=== PATIENT | female | born 1955 | race African-American/Black ===

== ENCOUNTER 2018-04-19 14:50 | Outpatient (CLI) | payer MEDICARE ==
--- NOTE | 2018-04-19 16:21 | MRI ---
MRI OF THE LEFT SHOULDER: Date: 04-19-18 Provided Clinical History: Left shoulder pain. FINDINGS: Comparison is made with a study dated 11-12-16. Evaluation is limited by patient motion. The components of the rotator cuff demonstrate no evidence for full thickness tear. There is increase d signal intensity on fluid sensitive sequences involving the under surface of the posterior distal s upraspinatus tendon that could reflect low grade partial thickness undersurface tearing. Signal alter ation involving the cranial fibers of the subscapularis near the lesser tuberosity insertion could al so reflect partial thickness undersurface tearing. There is thickening and increased signal intensity on fluid sensitive sequences involving the intraarticular segment of the long head biceps tendon. Sl ightly irregular appearance to the long head biceps tendon within the bicipital groove is also seen. There is a small glenohumeral joint effusion. The glenoid labrum and glenohumeral articular cartilage appear normal. There is no significant subacromial/subdeltoid bursal fluid. Acromioclavicular joint osteoarthrosis is noted with mild mass effect upon the subjacent supraspinatus. Rotator cuff muscular volume appears preserved. There is a small focus of oval diminished signal intensity involving the region of the infraspinatus tendon near the insertion likely reflecting sequellae of prior calcific tendinitis. No surrounding ed ematous type change is seen. IMPRESSION: 1. At least tendinosis and probably partial thickness interstitial tearing involving the intraarticul ar and proximal bicipital segments of the long head biceps tendon. 2. Suspected under surface tearing involving the subscapularis and supraspinatus tendons as described above. 3. Small glenohumeral joint effusion. POS: [facility]
== END 2018-04-19 14:51 | disposition home or self-care (01) ==
LOC: TBSIIMAG 14:50
PROVIDERS: ATTEND Orthopaedic Surgery
DX: M75.102 Unspecified rotator cuff tear or rupture of left shoulder, not specified as traumatic (principal); M25.412 Effusion, left shoulder; M75.92 Shoulder lesion, unspecified, left shoulder

== ENCOUNTER 2018-05-11 08:52 | Outpatient (CLI) | payer MEDICARE ==
[2018-05-11 10:31] LABS: #Eosinphils 0.2 thou/uL (0.0-0.7); #Lymphocytes 2.5 thou/uL (1.20-3.40); #Monocytes 0.5 thou/uL (0.11-0.59); #Neutrophils 4.2 thou/uL (1.40-6.50); %Basophils 0.7 % (0.0-1.0); %Eosinophils 2.1 % (0.0-10.0); %Lymphocytes 34.5 % (21.0-51.0); %Monocytes 6.2 % (0.0-10.0); %Neutrophils 56.6 % (42.0-75.0); Hemoglobin 13.9 g/dL (12.0-16.0); Mean Corpuscular HGB CONC 32.8 g/dL (32.0-36.0); Mean Corpuscular Hemoglobin 29.8 pg (27.0-31.0); Mean Corpuscular Volume 90.9 fL (78.0-98.0); Mean Platelet Volume 6.8 fL (7.4-10.4); Platelet Count 288 thou/uL (130-400); RBC Distribution Width 12.2 % (11.5-14.5); Red Blood Cell (RBC) Count 4.65 mill/uL (4.20-5.40); White Blood Cell (WBC) Count 7.4 thou/uL (4.8-10.8)
[2018-05-11 10:48] LABS: Anion Gap 12 mmol/L (10-20); BUN (Urea Nitrogen) 15 mg/dL (9.8-20.1); Calc. Creatinine Clearance 0 mL/min (70-130); Calcium 9.4 mg/dL (7.8-10.44); Carbon Dioxide 29 mmol/L (22-29); Chloride 102 mmol/L (98-107); Estimated GFR-MDRD Greater than 90; Glucose 107 mg/dL (70-105); Sodium 139 mmol/L (136-145)
== END 2018-05-11 08:53 | disposition home or self-care (01) ==
LOC: LABBT 08:52
PROVIDERS: ATTEND Orthopaedic Surgery
DX: Z01.812 Encounter for preprocedural laboratory examination (principal); S46.212A Strain of muscle, fascia and tendon of other parts of biceps, left arm, initial encounter; M75.102 Unspecified rotator cuff tear or rupture of left shoulder, not specified as traumatic
CPT/HCPCS: 80048; 85025

== ENCOUNTER 2018-05-18 06:04 | Day surgery (SDC) | payer MEDICARE ==
[2018-05-11 09:02] VITALS: BMI 48.5
[2018-05-18] MEDS ORDERED: Midazolam HCl 2 mg/2 ml Vial ONE (06:12)
[2018-05-18] MEDS ORDERED: Fentanyl 100 MCG/2 ML VIAL ONE (06:12)
[2018-05-18] MEDS ORDERED: Lidocaine 1% (PF) 30 ML VIAL ONE (06:29)
[2018-05-18] MEDS ORDERED: Clindamycin/D5W 900 mg/50 ml Premix Bag ONE (06:53)
[2018-05-18] MEDS ORDERED: Ketorolac Tromethamine 30 MG/ML VIAL IVP PRN (07:27)
[2018-05-18] MEDS ORDERED: Zolpidem Tartrate 5 MG TAB PO PRN (07:27)
[2018-05-18] MEDS ORDERED: Promethazine HCl 25 MG/ML VIAL IM PRN (07:27)
[2018-05-18] MEDS ORDERED: traMADol HCl 50 MG TAB PO PRN ×2 (07:27)
[2018-05-18] MEDS ORDERED: HYDROcodone/Acetaminophen 5/325 mg Tablet PO PRN ×2 (07:27)
[2018-05-18] MEDS ORDERED: Ondansetron PF 4 MG/2 ML Vial IVP PRN (07:27)
[2018-05-18] MEDS ORDERED: Ropivacaine 0.2% 550 ML 550 ML NERVE BLCK SCH (07:27)
[2018-05-18] MEDS ORDERED: Fentanyl 100 MCG/2 ML VIAL IV PRN (07:28)
[2018-05-18] MEDS ORDERED: hydrALAZINE 20 MG/ML VIAL ONE (09:01)
[2018-05-18] MEDS ORDERED: Albuterol Sulfate 1.25 MG/3 ML NEB ONE (09:08)
[2018-05-18] MEDS ORDERED: Albuterol Sulfate 2.5 mg/3 ml Neb ONE (09:09)
--- NOTE | 2018-05-18 10:48 | OP ---
DATE OF PROCEDURE: 05/18/2018 TITLE OF PROCEDURE: Left shoulder arthroscopic decompression, arthroscopic biceps tenotomy and arthr oscopic rotator cuff repair. SURGEON: Naif Castillo M.D. ANESTHESIA: General. BLOOD LOSS: Minimal. SPECIMEN: None. DRAINS: None. COMPLICATIONS: None. CORE DRILLER: No personnel security assistant was used. NARRATIVE REPORT: The patient was taken to the operating room where general anesthesia was induced. The patient was placed in the right lateral decubitus position. Left arm was placed in 15 pounds of traction, prepped and draped in sterile fashion. Scope was placed in the glenohumeral joint. There was no significant arthritis in the glenohumeral joint. There was a small full-thickness rotator cu ff tear. Biceps tendon was in very poor condition with some splitting and synovitis. Due to her obe sity, I elected to perform a biceps tenotomy since I have a large incision distally and arthroscopic surgery for tenodesis would not be possible due to her size. The tendon was transected from the supe rior glenoid tubercle. I debrided the labrum. The scope was placed in the subacromial joint. Subac romial bursectomy was performed. CA ligament was taken down. Hemostasis was obtained. Anterior and inferior acromioplasty was performed. I freshened up the greater tuberosity. I placed a single cor kscrew suture anchor through the defect. Sutures were passed through the rotator cuff and tied with a good watertight repair. Shoulder was drained. Portals closed with 3-0 nylon. Sterile dressings a pplied.
== END 2018-05-18 13:55 | disposition home or self-care (01) ==
LOC: SDC 06:04
PROVIDERS: ATTEND Orthopaedic Surgery
PROC: 0LM24ZZ Reattachment of Left Shoulder Tendon, Percutaneous Endoscopic Approach (ICD-10-PCS; principal; 2018-05-18)
PROC: 0RHK44Z Insertion of Internal Fixation Device into Left Shoulder Joint, Percutaneous Endoscopic Approach (ICD-10-PCS; 2018-05-18)
PROC: 0RNK4ZZ Release Left Shoulder Joint, Percutaneous Endoscopic Approach (ICD-10-PCS; 2018-05-18)
DX: M75.122 Complete rotator cuff tear or rupture of left shoulder, not specified as traumatic (principal); S46.212A Strain of muscle, fascia and tendon of other parts of biceps, left arm, initial encounter; M75.22 Bicipital tendinitis, left shoulder; E66.9 Obesity, unspecified; Z68.42 Body mass index [BMI] 45.0-49.9, adult; Z79.1 Long term (current) use of non-steroidal anti-inflammatories (NSAID); Z79.4 Long term (current) use of insulin; Z79.899 Other long term (current) drug therapy; Z88.0 Allergy status to penicillin; Z88.2 Allergy status to sulfonamides; Z88.8 Allergy status to other drugs, medicaments and biological substances; Z91.040 Latex allergy status
CPT/HCPCS: 29826; 29827; 82962; 94660; 96374; 97139; A4306; G8984; G8985; G8986; 36416; 96376; J0360; J2001; J2250; J2795; J3010; J3490; J7611

== ENCOUNTER 2018-05-18 14:27 | Emergency (ER) | payer MEDICARE | END 2018-05-18 17:10 | disposition home or self-care (01) | LOC: ERS 14:27 | DX: T85.898A Other specified complication of other internal prosthetic devices, implants and grafts, initial encounter (principal); I10 Essential (primary) hypertension; E11.9 Type 2 diabetes mellitus without complications; E66.9 Obesity, unspecified; E78.5 Hyperlipidemia, unspecified; F41.9 Anxiety disorder, unspecified; F32.9 Major depressive disorder, single episode, unspecified; K21.9 Gastro-esophageal reflux disease without esophagitis; Z79.4 Long term (current) use of insulin; Z79.82 Long term (current) use of aspirin; Z79.899 Other long term (current) drug therapy | CPT/HCPCS: 99284 ==

== ENCOUNTER 2018-08-07 12:22 | Outpatient (CLI) | payer MEDICARE | END 2018-08-07 12:23 | disposition home or self-care (01) | LOC: BICMAMMO 12:22 | PROVIDERS: ATTEND Family Medicine | DX: Z12.31 Encounter for screening mammogram for malignant neoplasm of breast (principal) | CPT/HCPCS: 77063; 77067 ==

== ENCOUNTER 2018-09-18 17:41 | Emergency (ER) | payer MEDICARE ==
[2018-09-18] MEDS ORDERED: Lidocaine 1% PF 5 ML VIAL ONE (19:59)
[2018-09-18] MEDS ORDERED: Morphine 4 MG/ML VIAL ONE (19:59)
[2018-09-18] MEDS ORDERED: cefTRIAXone\\ROCEPHIN 1 GM VIAL ONE (19:59)
--- NOTE | 2018-09-18 21:13 | ULT ---
LEFT LOWER EXTREMITY VENOUS DUPLEX STUDY: 09/18/18 Deep veins of the left lower extremity evaluated with color doppler, spectral analysis and compressio n. INDICATIONS: Left lower extremity pain and edema. Deep veins of the left lower extremity show normal blood flow and compression. No evidence of DVT. Pr ominent lymph nodes are seen in the left inguinal region. IMPRESSION: 1. No evidence of left lower extremity DVT. 2. Prominent left inguinal lymph nodes noted. POS: [facility]
== END 2018-09-18 22:17 | disposition home or self-care (01) ==
LOC: ERS 17:41
DX: L03.116 Cellulitis of left lower limb (principal); E11.9 Type 2 diabetes mellitus without complications; K21.9 Gastro-esophageal reflux disease without esophagitis; E78.5 Hyperlipidemia, unspecified; I10 Essential (primary) hypertension; M10.9 Gout, unspecified; F41.9 Anxiety disorder, unspecified; F32.9 Major depressive disorder, single episode, unspecified; F17.210 Nicotine dependence, cigarettes, uncomplicated; M19.90 Unspecified osteoarthritis, unspecified site
CPT/HCPCS: 85379; 96372; J0696; J2001; J2270

== ENCOUNTER 2018-12-03 13:35 | Outpatient (CLI) | payer MEDICARE ==
[2018-12-03] MEDS ORDERED: Sodium Chloride 0.9% 15 ML NEB ONE (18:00)
[2018-12-03] MEDS ORDERED: Lidocaine 2% PF 100 mg/5 ml Syringe ONE (18:00)
--- NOTE | 2018-12-04 00:01 | HP ---
HISTORY OF PRESENT ILLNESS: Ms. Lucila Monroy is a very pleasant 62-year-old, who presents to the [facility] for evaluation of an ulceration of the left lower leg. The patient states that she scraped her leg on a curb in August of this year. She states that initially she utilized mupirocin for treatment of the wound, but because of burning, began utilizing Vaseline. She states that plain films of the left ankle were obtained by Dr. Sky, and the patient was eventually seen by Dr. Valdivia because the wound remained unhealed. The patient was referred to the Wound Center by Dr. Valdivia on 11/22/2018. The patient states that she has been cleansing the wound with sterile water and gauze. She has been dressing the wound with Hydrofera Blue followed by a Band-Aid. The patient has also been taking Keflex as per Dr. Valdivia. PAST MEDICAL HISTORY: 1. Gastroesophageal reflux disease. 2. Diabetes mellitus. 3. Hypertension. 4. Chronic back pain. 5. Spinal stenosis. 6. Congestive heart failure, diastolic. PAST SURGICAL HISTORY: 1. Exploratory laparotomy for ruptured right ovarian cyst. 2. Incision and drainage of infected abdominal wound. 3. Appendectomy. 4. Cholecystectomy. 5. Herniorrhaphy. 6. Tonsillectomy. 7. Arthroscopic surgery of left shoulder. 8. Back surgery x2. MEDICATIONS: 1. Keflex. 2. Levemir. 3. Glipizide. 4. Furosemide. 5. Pravachol. 6. Lisinopril. 7. Melatonin. 8. Potassium. 9. Cyclobenzaprine. 10. Effexor. 11. Vitamin D. 12. Amlodipine. 13. Zetia. 14. Meloxicam. 15. Inhaler. ALLERGIES: LATEX, SULFA, ERYTHROMYCIN. SOCIAL HISTORY: Significant for tobacco use of up to 1 pack of cigarettes per day for 40 years. The patient denies any history of EtOH use. FAMILY HISTORY: The patient states she is adopted. PHYSICAL EXAMINATION: VITAL SIGNS: Temperature 97.5, pulse 92, blood pressure 188/78. Accu-Chek 81. GENERAL: A 62-year-old female, sitting on stretcher in examination room, in no acute distress. HEENT: Normocephalic and atraumatic. NECK: No nuchal rigidity. CHEST: Clear to auscultation. CV: Regular rate and rhythm. ABDOMEN: Soft. EXTREMITIES: An ulceration of the left lower leg in the region of the lateral malleolus is present, which measures approximately 0.8 x 0.4 cm. Granulation tissue is present within the wound margins. Necrotic and nonviable tissue present within the wound margins was debrided with an excisional full-thickness debridement with the use of a curette. No purulent drainage is associated with the wound. No erythema of the skin surrounding the wound is present. No maceration of the skin of the periwound is noted. A dorsalis pedis pulse is palpable on the left. No significant edema of the left foot or lower leg is present on exam today. NEURO: Grossly nonfocal. ASSESSMENT AND PLAN: 1. Chronic venous hypertension with ulceration. Dressing changes of Hydrofera Blue will be initiated today. These dressing changes are to be performed on a daily basis after cleansing and irrigation. The patient states that she will be performing her own dressing changes. I will see Ms. Monroy again in 2 weeks if her ulceration is still present. At this time, the patient has been instructed to continue Keflex as previously prescribed. The patient understands and is in agreement with the preceding treatment plan. The patient has previously undergone venous ablation on the left by Dr. Angeles. She also has compression garments. The patient states that she will begin utilizing her compression garments immediately should she begin to experience edema of her right or left lower extremity. 2. Gastroesophageal reflux disease. 3. Diabetes mellitus. The patient's Accu-Chek in clinic today is 81. The patient has been told that for optimal wound healing, her blood glucoses should remain below 150. 4. Hypertension. 5. Chronic back pain. 6. Spinal stenosis. 7. Congestive heart failure, diastolic. Job ID: [id number]
== END 2018-12-03 13:36 | disposition home or self-care (01) ==
LOC: WCC 13:35
PROVIDERS: ATTEND Family Medicine
DX: I87.312 Chronic venous hypertension (idiopathic) with ulcer of left lower extremity (principal); L97.922 Non-pressure chronic ulcer of unspecified part of left lower leg with fat layer exposed; K21.9 Gastro-esophageal reflux disease without esophagitis; E11.22 Type 2 diabetes mellitus with diabetic chronic kidney disease; I11.0 Hypertensive heart disease with heart failure; M54.9 Dorsalgia, unspecified; G89.29 Other chronic pain; M48.00 Spinal stenosis, site unspecified; I50.30 Unspecified diastolic (congestive) heart failure; E11.65 Type 2 diabetes mellitus with hyperglycemia
CPT/HCPCS: A4218; J2001

== ENCOUNTER 2020-04-17 10:23 | Outpatient (CLI) | payer MEDICARE ==
--- NOTE | 2020-04-17 14:05 | MMO ---
Bilateral MAMMO Bilat Screen [facility]. CLINICAL HISTORY: Patient is 64 years old and is seen for screening. The patient has no family history of breast cancer. The patient has no personal history of cancer. VIEWS: The views performed were: bilateral craniocaudal; bilateral craniocaudal with tomosynthesis; bilateral mediolateral oblique; and bilateral mediolateral oblique with tomosynthesis. FILMS COMPARED: The present examination has been compared to prior imaging studies performed at [facility] on 04/14/2016 and 08/07/2018. This study has been interpreted with the assistance of computer-aided detection. MAMMOGRAM FINDINGS: The breasts are heterogeneously dense, which could obscure a lesion on mammography. Benign calcifications are noted bilaterally. There are no suspicious masses, suspicious calcifications, or new areas of architectural distortion. IMPRESSION: THERE IS NO MAMMOGRAPHIC EVIDENCE OF MALIGNANCY. A ROUTINE FOLLOW-UP MAMMOGRAM IN 1 YEAR IS RECOMMENDED. THE RESULTS OF THIS EXAM WERE SENT TO THE PATIENT. ACR BI-RADS Category 2 - Benign finding MAMMOGRAPHY NOTE: 1. A negative mammogram report should not delay a biopsy if a dominant of clinically suspicious mass is present. 2. Approximately 10% to 15% of breast cancers are not detected by mammography. 3. Adenosis and dense breasts may obscure an underlying neoplasm. Reported by: MARANDA WETZEL MD Electonically Signed: [id number]
== END 2020-04-17 10:24 | disposition home or self-care (01) ==
LOC: BICMAMMO 10:23
PROVIDERS: ATTEND Family Medicine
DX: Z12.31 Encounter for screening mammogram for malignant neoplasm of breast (principal)
CPT/HCPCS: 77063; 77067

== ENCOUNTER 2020-08-03 05:20 | Emergency (ER) | payer MEDICARE ==
--- NOTE | 2020-08-03 07:42 | ULT ---
PRELIMINARY REPORT/[facility]/EMERGENCY AFTER HOURS PROCEDURE: EXAM: US Duplex bilateral Lower Extremity Veins. CLINICAL HISTORY: HX: BLE PAIN. SEE NOTES ON LAST IMAGE. THANKS TECHNIQUE: Real-time ultrasound scan of the veins of the bilateral lower extremity with color Doppler flow, spectral waveform analysis and compression. COMPARISON: None provided. FINDINGS: DEEP VEINS: The common femoral, femoral, and popliteal veins are echolucent and compressible. These v essels demonstrate respiratory variation and augmentation. There is normal color Doppler flow throughout. The visualized calf veins are also patent. SUPERFICIAL VEINS: The visualized greater saphenous vein is patent. SOFT TISSUES: No popliteal fossa cyst or other abnormalities. IMPRESSION: No deep venous thrombosis in the bilateral lower extremity. ELECTRONICALLY SIGNED BY: Wagner Diaz MD Aug 03, 2020 7:05:08 AM [employer] FINAL REPORT BILATERAL LOWER EXTREMITY VENOUS ULTRASOUND: HISTORY: Pain. Edema. COMPARISON: None. TECHNIQUE: Multiplanar grayscale and color Doppler images were obtained in a bilateral lower extremity venous ul trasound. Spectral analysis of the Doppler waveforms were performed. FINDINGS: The bilateral common femoral vein, profunda femoral veins, superficial femoral veins, and popliteal v eins are normal in appearance without visible thrombus. These vessels demonstrate normal compression, flow, and augmentation. The bilateral posterior tibial veins, profunda femoral veins and greater saphenous veins are patent w ithout evidence of DVT. IMPRESSION: 1. This report is in agreement with initial report by [facility]. 2. No evidence of DVT in the left or right lower extremity. Transcribed Date/Time: 08/03/2020 7:50 AM
== END 2020-08-03 09:47 | disposition home or self-care (01) ==
LOC: ERS 05:20
DX: R25.2 Cramp and spasm (principal); Z79.899 Other long term (current) drug therapy; Z79.4 Long term (current) use of insulin; E11.9 Type 2 diabetes mellitus without complications; M10.9 Gout, unspecified; J44.9 Chronic obstructive pulmonary disease, unspecified; I10 Essential (primary) hypertension; E78.5 Hyperlipidemia, unspecified; M19.90 Unspecified osteoarthritis, unspecified site; K21.9 Gastro-esophageal reflux disease without esophagitis; F17.210 Nicotine dependence, cigarettes, uncomplicated
CPT/HCPCS: 36416; 93970

== ENCOUNTER 2020-12-16 12:10 | Emergency (ER) | payer MEDICARE ==
[2020-12-16 13:36] LABS: #Basophils 0.1 thou/uL (0.0-0.2); #Eosinphils 0.2 thou/uL (0.0-0.7); #Monocytes 0.8 thou/uL (0.11-0.59); #Neutrophils 7.1 thou/uL (1.40-6.50); %Basophils 0.9 % (0.0-1.0); %Lymphocytes 19.4 % (21.0-51.0); %Monocytes 7.7 % (0.0-10.0); Mean Corpuscular HGB CONC 33.1 g/dL (32.0-36.0); Mean Corpuscular Hemoglobin 29.5 pg (27.0-31.0); Mean Platelet Volume 7.2 fL (7.4-10.4); Platelet Count 278 thou/uL (130-400); RBC Distribution Width 13.7 % (11.5-14.5); Red Blood Cell (RBC) Count 4.42 mill/uL (4.20-5.40); White Blood Cell (WBC) Count 10.1 thou/uL (4.8-10.8)
[2020-12-16 13:57] LABS: Anion Gap 13 mmol/L (10-20); BUN (Urea Nitrogen) 16 mg/dL (9.8-20.1); Calc. Creatinine Clearance 0 mL/min (70-130); Carbon Dioxide 29 mmol/L (23-31); Chloride 103 mmol/L (98-107); Potassium 3.6 mmol/L (3.5-5.1); Sodium 141 mmol/L (136-145)
[2020-12-16 13:58] LABS: ALT (SGPT) 11 U/L (8-55); AST (SGOT) 6 U/L (5-34); Albumin 3.3 g/dL (3.4-4.8); Alkaline Phosphatase 109 U/L (40-110); Bilirubin, Total 0.5 mg/dL (0.2-1.2); Calcium 8.8 mg/dL (7.8-10.44); Globulin 3.7 g/dL (2.4-3.5); Glucose 419 mg/dL (80-115)
[2020-12-16] MEDS ORDERED: Acetaminophen 500 MG TAB ONE (14:04)
== END 2020-12-16 15:35 | disposition home or self-care (01) ==
LOC: ERS 12:10
DX: M25.562 Pain in left knee (principal); E11.9 Type 2 diabetes mellitus without complications; I10 Essential (primary) hypertension; R60.0 Localized edema; E78.5 Hyperlipidemia, unspecified; J44.9 Chronic obstructive pulmonary disease, unspecified; F17.210 Nicotine dependence, cigarettes, uncomplicated; Z79.899 Other long term (current) drug therapy; Z79.4 Long term (current) use of insulin
CPT/HCPCS: 36415; 80053; 85025; 85379

== ENCOUNTER 2021-01-06 11:27 | Inpatient (IN) | payer MEDICARE ==
[2021-01-06 13:05] LABS: #Basophils 0.1 thou/uL (0.0-0.2); #Eosinphils 0.1 thou/uL (0.0-0.7); #Monocytes 0.8 thou/uL (0.11-0.59); #Neutrophils 7.5 thou/uL (1.40-6.50); %Basophils 1.2 % (0.0-1.0); %Eosinophils 1.2 % (0.0-10.0); %Lymphocytes 19.1 % (21.0-51.0); %Monocytes 7.3 % (0.0-10.0); %Neutrophils 71.3 % (42.0-75.0); Hemoglobin 13.2 g/dL (12.0-16.0); Mean Corpuscular HGB CONC 31.9 g/dL (32.0-36.0); Mean Corpuscular Hemoglobin 28.8 pg (27.0-31.0); Mean Corpuscular Volume 90.5 fL (78.0-98.0); Mean Platelet Volume 6.8 fL (7.4-10.4); Platelet Count 315 thou/uL (130-400); RBC Distribution Width 13.9 % (11.5-14.5); Red Blood Cell (RBC) Count 4.59 mill/uL (4.20-5.40); White Blood Cell (WBC) Count 10.5 thou/uL (4.8-10.8)
[2021-01-06 13:23] LABS: ALT (SGPT) 28 U/L (8-55); AST (SGOT) 17 U/L (5-34); Albumin 3.5 g/dL (3.4-4.8); Alkaline Phosphatase 87 U/L (40-110); Anion Gap 12 mmol/L (10-20); BUN (Urea Nitrogen) 20 mg/dL (9.8-20.1); Bilirubin, Total 0.4 mg/dL (0.2-1.2); Calc. Creatinine Clearance 0 mL/min (70-130); Calcium 8.9 mg/dL (7.8-10.44); Carbon Dioxide 24 mmol/L (23-31); Chloride 108 mmol/L (98-107); Glucose 100 mg/dL (80-115); Magnesium 2.1 mg/dL (1.6-2.6); Protein, Total 7.5 g/dL (5.8-8.1); Sodium 140 mmol/L (136-145)
[2021-01-06] MEDS ORDERED: Acetaminophen 500 MG TAB ONE (13:24)
[2021-01-06] MEDS ORDERED: Ondansetron PF 4 MG/2 ML Vial ONE (13:30)
[2021-01-06] MEDS ORDERED: Iopamidol-370 76% 500 ML 1 ML ONE (14:02)
[2021-01-06] MEDS ORDERED: Senokot S 8.6-50 MG TAB PO PRN (15:54)
[2021-01-06 17:10] LABS: Hemoglobin A1c 7.8 % (4.0-6.0)
[2021-01-06] MEDS ORDERED: Aspirin Chewable 81 MG TAB ONE (17:52)
[2021-01-06] MEDS ORDERED: Lisinopril 10 MG TAB ONE (18:31)
[2021-01-06] MEDS ORDERED: HYDROmorphone 0.5 MG/0.5 ML SYRINGE ONE (19:34)
[2021-01-06] MEDS ORDERED: Amlodipine 5 MG TAB ONE (19:34)
[2021-01-06] MEDS: Atorvastatin Calcium 40 MG TAB PO SCH (21:29)
[2021-01-06] MEDS: Nicotine 14 MG PATCH TD SCH (21:30)
[2021-01-06 21:54] VITALS: BMI 46.0
[2021-01-06] MEDS: Acetaminophen 325 MG TAB PO PRN (23:58)
[2021-01-07 04:50] LABS: #Basophils 0.1 thou/uL (0.0-0.2); #Eosinphils 0.2 thou/uL (0.0-0.7); #Lymphocytes 2.5 thou/uL (1.20-3.40); #Monocytes 0.8 thou/uL (0.11-0.59); #Neutrophils 5.4 thou/uL (1.40-6.50); %Basophils 0.7 % (0.0-1.0); %Eosinophils 2.1 % (0.0-10.0); %Lymphocytes 27.6 % (21.0-51.0); %Monocytes 9.2 % (0.0-10.0); %Neutrophils 60.5 % (42.0-75.0); Hemoglobin 12.5 g/dL (12.0-16.0); Mean Corpuscular HGB CONC 31.5 g/dL (32.0-36.0); Mean Corpuscular Hemoglobin 28.4 pg (27.0-31.0); Mean Platelet Volume 7.1 fL (7.4-10.4); Platelet Count 279 thou/uL (130-400); RBC Distribution Width 13.9 % (11.5-14.5); Red Blood Cell (RBC) Count 4.39 mill/uL (4.20-5.40); White Blood Cell (WBC) Count 8.9 thou/uL (4.8-10.8)
[2021-01-07 05:08] LABS: ALT (SGPT) 27 U/L (8-55); AST (SGOT) 16 U/L (5-34); Albumin 3.2 g/dL (3.4-4.8); Alkaline Phosphatase 85 U/L (40-110); Anion Gap 11 mmol/L (10-20); BUN (Urea Nitrogen) 20 mg/dL (9.8-20.1); Bilirubin, Total 0.4 mg/dL (0.2-1.2); Calc. Creatinine Clearance 159 mL/min (70-130); Calcium 8.5 mg/dL (7.8-10.44); Carbon Dioxide 26 mmol/L (23-31); Chloride 107 mmol/L (98-107); Globulin 3.4 g/dL (2.4-3.5); Glucose 117 mg/dL (80-115); Potassium 3.9 mmol/L (3.5-5.1); Protein, Total 6.6 g/dL (5.8-8.1); Sodium 140 mmol/L (136-145)
[2021-01-07] MEDS: Aspirin 325 MG TAB PO SCH (09:18)
[2021-01-07] MEDS: Acetaminophen 325 MG TAB PO PRN (09:18)
[2021-01-07] MEDS: HYDROcodone/Acetaminophen 5/325 mg Tablet PO PRN ×2 (11:58→22:39)
[2021-01-07] MEDS ORDERED: Dextrose 5% in Water 1,000 ML IV PRN (12:11)
[2021-01-07] MEDS ORDERED: Dextrose 50% Abboject 50 ML SYRINGE SLOW IVP PRN (12:11)
[2021-01-07] MEDS: Gabapentin 300 MG CAP PO SCH ×2 (15:24→22:40)
[2021-01-07] MEDS: Nicotine 14 MG PATCH TD SCH (17:39)
[2021-01-07] MEDS: Atorvastatin Calcium 40 MG TAB PO SCH (22:40)
[2021-01-07] MEDS: Lantus 1000 UNITS/10 ML VIAL SC SCH (22:48)
[2021-01-08] MEDS ORDERED: hydrALAZINE 20 MG/ML VIAL SLOW IVP SCH (00:45)
[2021-01-08] MEDS: HYDROcodone/Acetaminophen 5/325 mg Tablet PO PRN ×3 (02:21→21:34)
[2021-01-08] MEDS: Ondansetron PF 4 MG/2 ML Vial IVP PRN ×2 (02:21→13:13)
[2021-01-08] MEDS ORDERED: cloNIDine 0.1 MG TAB PO PRN (02:25)
[2021-01-08] MEDS ORDERED: hydrALAZINE 20 MG/ML VIAL SLOW IVP PRN (02:25)
[2021-01-08] MEDS: Labetalol HCl 100 MG/20 ML VIAL SLOW IVP PRN (03:09)
[2021-01-08] MEDS: Allopurinol 100 MG TAB PO SCH (08:44)
[2021-01-08] MEDS: Amlodipine 10 MG TAB PO SCH (08:45)
[2021-01-08] MEDS: Losartan 25 MG TAB PO SCH (08:45)
[2021-01-08] MEDS: Gabapentin 300 MG CAP PO SCH ×3 (08:46→21:35)
[2021-01-08] MEDS: Aspirin 325 MG TAB PO SCH (08:46)
[2021-01-08] MEDS: Ezetimibe 10 MG TAB PO SCH (08:46)
[2021-01-08] MEDS: Lisinopril 20 MG TAB PO SCH (08:47)
[2021-01-08] MEDS: Lantus 1000 UNITS/10 ML VIAL SC SCH ×2 (08:47→21:33)
[2021-01-08] MEDS: Nicotine 14 MG PATCH TD SCH (17:09)
[2021-01-08] MEDS: HumaLOG 300 UNITS/3 ML VIAL SC PRN (17:09)
[2021-01-08] MEDS: Nystatin Powder 15 GM BOT TOP PRN (21:33)
[2021-01-08] MEDS: Atorvastatin Calcium 40 MG TAB PO SCH (21:34)
[2021-01-09] MEDS: HYDROcodone/Acetaminophen 5/325 mg Tablet PO PRN (01:53)
[2021-01-09] MEDS: Lantus 1000 UNITS/10 ML VIAL SC SCH ×2 (08:49→20:44)
[2021-01-09] MEDS: Nystatin Powder 15 GM BOT TOP PRN (08:51)
[2021-01-09] MEDS: Lisinopril 20 MG TAB PO SCH (08:52)
[2021-01-09] MEDS: Ezetimibe 10 MG TAB PO SCH (08:52)
[2021-01-09] MEDS: Losartan 25 MG TAB PO SCH (08:52)
[2021-01-09] MEDS: Aspirin 325 MG TAB PO SCH (08:52)
[2021-01-09] MEDS: Gabapentin 300 MG CAP PO SCH ×3 (08:53→20:33)
[2021-01-09] MEDS: Amlodipine 10 MG TAB PO SCH (08:53)
[2021-01-09] MEDS: Allopurinol 100 MG TAB PO SCH (08:54)
[2021-01-09] MEDS: Acetaminophen 325 MG TAB PO PRN (14:11)
[2021-01-09] MEDS: Nicotine 14 MG PATCH TD SCH (15:48)
[2021-01-09] MEDS ORDERED: HYDROcodone/Acetaminophen 5/325 mg Tablet PO PRN (16:35)
[2021-01-09] MEDS: HumaLOG 300 UNITS/3 ML VIAL SC PRN (18:22)
[2021-01-09] MEDS: Atorvastatin Calcium 40 MG TAB PO SCH (20:35)
[2021-01-09] MEDS ORDERED: hydrALAZINE 25 MG TAB PO SCH (21:00)
[2021-01-10] MEDS: Labetalol HCl 100 MG/20 ML VIAL SLOW IVP PRN (03:21)
[2021-01-10 04:43] LABS: #Basophils 0.1 thou/uL (0.0-0.2); #Eosinphils 0.1 thou/uL (0.0-0.7); #Lymphocytes 1.1 thou/uL (1.20-3.40); #Monocytes 0.6 thou/uL (0.11-0.59); #Neutrophils 6.6 thou/uL (1.40-6.50); %Basophils 0.8 % (0.0-1.0); %Eosinophils 1.2 % (0.0-10.0); %Monocytes 7.3 % (0.0-10.0); %Neutrophils 77.8 % (42.0-75.0); Hemoglobin 12.1 g/dL (12.0-16.0); Mean Corpuscular HGB CONC 31.2 g/dL (32.0-36.0); Mean Corpuscular Hemoglobin 28.4 pg (27.0-31.0); Mean Corpuscular Volume 90.8 fL (78.0-98.0); Platelet Count 254 thou/uL (130-400); RBC Distribution Width 13.9 % (11.5-14.5); Red Blood Cell (RBC) Count 4.26 mill/uL (4.20-5.40); White Blood Cell (WBC) Count 8.5 thou/uL (4.8-10.8)
[2021-01-10 05:07] LABS: Anion Gap 10 mmol/L (10-20); BUN (Urea Nitrogen) 21 mg/dL (9.8-20.1); Calc. Creatinine Clearance 161 mL/min (70-130); Calcium 8.5 mg/dL (7.8-10.44); Carbon Dioxide 25 mmol/L (23-31); Chloride 107 mmol/L (98-107); Glucose 70 mg/dL (80-115); Magnesium 1.8 mg/dL (1.6-2.6); Potassium 4.1 mmol/L (3.5-5.1); Sodium 138 mmol/L (136-145)
[2021-01-10] MEDS: Aspirin 325 MG TAB PO SCH (09:24)
[2021-01-10] MEDS: hydrALAZINE 25 MG TAB PO SCH ×3 (09:24→20:47)
[2021-01-10] MEDS: Ezetimibe 10 MG TAB PO SCH (09:24)
[2021-01-10] MEDS: Losartan 25 MG TAB PO SCH (09:26)
[2021-01-10] MEDS: Gabapentin 300 MG CAP PO SCH ×3 (09:26→20:48)
[2021-01-10] MEDS: Nystatin Powder 15 GM BOT TOP PRN (09:27)
[2021-01-10] MEDS: Allopurinol 100 MG TAB PO SCH (09:27)
[2021-01-10] MEDS: Amlodipine 10 MG TAB PO SCH (09:27)
[2021-01-10] MEDS: Lantus 1000 UNITS/10 ML VIAL SC SCH ×2 (09:28→20:48)
[2021-01-10] MEDS: Lisinopril 20 MG TAB PO SCH (09:33)
[2021-01-10] MEDS: HumaLOG 300 UNITS/3 ML VIAL SC PRN (11:31)
[2021-01-10] MEDS: Ondansetron PF 4 MG/2 ML Vial IVP PRN (15:32)
[2021-01-10] MEDS: Nicotine 14 MG PATCH TD SCH (16:12)
[2021-01-10] MEDS: Loperamide HCl 2 MG CAP PO PRN ×2 (17:05→21:59)
[2021-01-10] MEDS: Atorvastatin Calcium 40 MG TAB PO SCH (20:47)
[2021-01-11] MEDS: Aspirin 325 MG TAB PO SCH (08:09)
[2021-01-11] MEDS: Gabapentin 300 MG CAP PO SCH ×2 (08:09→14:39)
[2021-01-11] MEDS: Ezetimibe 10 MG TAB PO SCH (08:09)
[2021-01-11] MEDS: Allopurinol 100 MG TAB PO SCH (08:10)
[2021-01-11] MEDS: Lisinopril 20 MG TAB PO SCH (08:10)
[2021-01-11] MEDS: Losartan 25 MG TAB PO SCH (08:10)
[2021-01-11] MEDS: Amlodipine 10 MG TAB PO SCH (08:10)
[2021-01-11] MEDS: hydrALAZINE 25 MG TAB PO SCH ×2 (08:11→14:39)
[2021-01-11] MEDS: Lantus 1000 UNITS/10 ML VIAL SC SCH (09:58)
[2021-01-11 12:28] VITALS: BP 144/65; TEMP 97.7
== END 2021-01-11 15:16 | disposition home health service (06) | DRG 74 ==
LOC: ERS 11:27 → ERHOLD 15:11 → 2SE 20:57
PROVIDERS: ADMIT Student in an Organized Health Care Education/Training Program; ATTEND Internal Medicine
DX: G54.2 Cervical root disorders, not elsewhere classified (principal); I50.32 Chronic diastolic (congestive) heart failure; E11.9 Type 2 diabetes mellitus without complications; Z66 Do not resuscitate; E78.5 Hyperlipidemia, unspecified; I11.0 Hypertensive heart disease with heart failure; J44.9 Chronic obstructive pulmonary disease, unspecified; F41.9 Anxiety disorder, unspecified; F32.9 Major depressive disorder, single episode, unspecified; E78.00 Pure hypercholesterolemia, unspecified; M48.02 Spinal stenosis, cervical region; F17.210 Nicotine dependence, cigarettes, uncomplicated; E66.01 Morbid (severe) obesity due to excess calories; K21.9 Gastro-esophageal reflux disease without esophagitis; G89.29 Other chronic pain; Z68.42 Body mass index [BMI] 45.0-49.9, adult; Z90.49 Acquired absence of other specified parts of digestive tract; Z90.710 Acquired absence of both cervix and uterus; Z88.0 Allergy status to penicillin; Z88.2 Allergy status to sulfonamides; Z88.1 Allergy status to other antibiotic agents; Z91.040 Latex allergy status; Z79.01 Long term (current) use of anticoagulants; Z79.4 Long term (current) use of insulin; Z79.1 Long term (current) use of non-steroidal anti-inflammatories (NSAID); Z79.51 Long term (current) use of inhaled steroids; Z79.899 Other long term (current) drug therapy
CPT/HCPCS: 36415; 36416; 70450; 70496; 70498; 72125; 80048; 80053; 80061; 83036; 83735; 84484; 85025; 93005; 93306; 96374; 96375; J0360; J1170; J1815; J2405; Q9967

== ENCOUNTER 2021-03-11 | Outpatient (CLI) | payer MEDICARE | END 2021-03-11 13:13 | disposition home or self-care (01) ==

== ENCOUNTER 2021-05-21 16:15 | Inpatient (IN) | payer MEDICARE ==
[~2021-05-21 16:15] MED LIST: Iopamidol 370 76% 100 ML VIAL ONE
[2021-05-21 17:11] LABS: #Basophils 0.1 thou/uL (0.0-0.2); #Eosinphils 0.2 thou/uL (0.0-0.7); #Lymphocytes 2.2 thou/uL (1.20-3.40); #Monocytes 0.6 thou/uL (0.11-0.59); #Neutrophils 6.9 thou/uL (1.40-6.50); %Basophils 0.7 % (0.0-1.0); %Lymphocytes 21.7 % (21.0-51.0); %Monocytes 6.4 % (0.0-10.0); %Neutrophils 69.3 % (42.0-75.0); Hemoglobin 13.7 g/dL (12.0-16.0); Mean Corpuscular HGB CONC 33.2 g/dL (32.0-36.0); Mean Corpuscular Hemoglobin 31.1 pg (27.0-31.0); Mean Corpuscular Volume 93.7 fL (78.0-98.0); Platelet Count 272 thou/uL (130-400); RBC Distribution Width 13.1 % (11.5-14.5); Red Blood Cell (RBC) Count 4.41 mill/uL (4.20-5.40)
[2021-05-21 17:22] LABS: INR-International Normal Ratio 0.9; Prothrombin Time 12.5 sec (12.0-14.7)
[2021-05-21 17:23] LABS: PTT 32.4 sec (22.9-36.1)
[2021-05-21 17:43] LABS: ALT (SGPT) 23 U/L (8-55); AST (SGOT) 11 U/L (5-34); Albumin 3.3 g/dL (3.4-4.8); Alkaline Phosphatase 86 U/L (40-110); Anion Gap 13 mmol/L (10-20); BUN (Urea Nitrogen) 21 mg/dL (9.8-20.1); Bilirubin, Total 0.4 mg/dL (0.2-1.2); Calc. Creatinine Clearance 0 mL/min (70-130); Calcium 8.5 mg/dL (7.8-10.44); Carbon Dioxide 27 mmol/L (23-31); Chloride 105 mmol/L (98-107); Globulin 3.1 g/dL (2.4-3.5); Glucose 146 mg/dL (80-115); Potassium 3.7 mmol/L (3.5-5.1); Protein, Total 6.4 g/dL (5.8-8.1); Sodium 141 mmol/L (136-145)
[2021-05-21] MEDS ORDERED: Clopidogrel Bisulfate 300 MG TAB ONE (18:55)
[2021-05-21] MEDS ORDERED: Acetaminophen 325 MG TAB PO PRN (20:18)
[2021-05-21] MEDS ORDERED: Dextrose 50% Abboject 50 ML SYRINGE SLOW IVP PRN (20:18)
[2021-05-21] MEDS ORDERED: HumaLOG 300 UNITS/3 ML VIAL SC PRN (20:18)
[2021-05-21] MEDS ORDERED: Dextrose 5% in Water 1,000 ML IV PRN (20:18)
[2021-05-21] MEDS ORDERED: Ondansetron ODT 4 MG TAB PO PRN (20:18)
[2021-05-21] MEDS ORDERED: Nicotine 14 MG PATCH TD PRN (20:18)
[2021-05-21] MEDS ORDERED: Senokot S 8.6-50 MG TAB PO PRN (20:18)
[2021-05-21 21:47] VITALS: BMI 47.0
[2021-05-21] MEDS: Gabapentin 300 MG CAP PO SCH (23:19)
[2021-05-21] MEDS: Atorvastatin Calcium 40 MG TAB PO SCH (23:20)
[2021-05-22 01:07] LABS: SARS-CoV-2 NAA Rapid Test Not Detected (NotDetected)
[2021-05-22] MEDS ORDERED: Sodium Chloride 0.65% Nasal 44 ML BOT EA NARE PRN (01:54)
[2021-05-22] MEDS ORDERED: Fluticasone Propionate Nasal Spray 16 gm Bottle NASAL SCH (02:00)
[2021-05-22 05:02] LABS: #Basophils 0.1 thou/uL (0.0-0.2); #Eosinphils 0.5 thou/uL (0.0-0.7); #Lymphocytes 3.5 thou/uL (1.20-3.40); #Neutrophils 6.5 thou/uL (1.40-6.50); %Basophils 0.8 % (0.0-1.0); %Eosinophils 4.4 % (0.0-10.0); %Monocytes 8.6 % (0.0-10.0); %Neutrophils 56.2 % (42.0-75.0); Hemoglobin 12.8 g/dL (12.0-16.0); Mean Corpuscular HGB CONC 33.7 g/dL (32.0-36.0); Mean Corpuscular Hemoglobin 31.3 pg (27.0-31.0); Mean Corpuscular Volume 93.1 fL (78.0-98.0); Mean Platelet Volume 7.2 fL (7.4-10.4); Platelet Count 251 thou/uL (130-400); RBC Distribution Width 13.2 % (11.5-14.5); Red Blood Cell (RBC) Count 4.09 mill/uL (4.20-5.40); White Blood Cell (WBC) Count 11.6 thou/uL (4.8-10.8)
[2021-05-22 05:25] LABS: Anion Gap 12 mmol/L (10-20); BUN (Urea Nitrogen) 21 mg/dL (9.8-20.1); Calc. Creatinine Clearance 153 mL/min (70-130); Calcium 8.1 mg/dL (7.8-10.44); Carbon Dioxide 25 mmol/L (23-31); Cardiac Risk 3.8 (Less than 4.5); Chloride 108 mmol/L (98-107); Cholesterol 139 mg/dl (< 200 Desired); Glucose 179 mg/dL (80-115); HDL Cholesterol 37 mg/dL (>60 Neg Risk); LDL Cholesterol, Calculated 80 mg/dL; Potassium 3.7 mmol/L (3.5-5.1); Sodium 141 mmol/L (136-145); Triglycerides 110 mg/dL (Less than 150)
[2021-05-22] MEDS: HumaLOG 300 UNITS/3 ML VIAL SC PRN ×2 (06:59→13:19)
[2021-05-22] MEDS: Aspirin 81 mg Enteric Coated Tablet PO SCH (09:16)
[2021-05-22] MEDS: Ezetimibe 10 MG TAB PO SCH (09:16)
[2021-05-22] MEDS: Allopurinol 100 MG TAB PO SCH (09:16)
[2021-05-22] MEDS: Enoxaparin Sodium 40 MG/0.4 ML SYRINGE SC SCH (09:16)
[2021-05-22] MEDS: Oxybutynin ER 5 MG TAB PO SCH (09:16)
[2021-05-22] MEDS: Fluticasone Propionate Nasal Spray 16 gm Bottle NASAL SCH (09:17)
[2021-05-22] MEDS: Gabapentin 300 MG CAP PO SCH ×3 (09:18→20:15)
[2021-05-22] MEDS ORDERED: Amlodipine 10 MG TAB PO SCH (14:00)
[2021-05-22] MEDS ORDERED: Losartan 25 MG TAB PO SCH (14:00)
[2021-05-22] MEDS ORDERED: Lorazepam 0.5 MG TAB PO PRN (14:27)
[2021-05-22] MEDS: Atorvastatin Calcium 40 MG TAB PO SCH (20:16)
[2021-05-23 05:54] LABS: #Basophils 0.1 thou/uL (0.0-0.2); #Eosinphils 0.4 thou/uL (0.0-0.7); #Lymphocytes 2.9 thou/uL (1.20-3.40); #Monocytes 0.8 thou/uL (0.11-0.59); #Neutrophils 5.5 thou/uL (1.40-6.50); %Basophils 0.6 % (0.0-1.0); %Lymphocytes 30.3 % (21.0-51.0); %Monocytes 7.8 % (0.0-10.0); %Neutrophils 57.3 % (42.0-75.0); Hemoglobin 12.7 g/dL (12.0-16.0); Mean Corpuscular Hemoglobin 31.7 pg (27.0-31.0); Platelet Count 249 thou/uL (130-400); RBC Distribution Width 12.9 % (11.5-14.5); Red Blood Cell (RBC) Count 4.01 mill/uL (4.20-5.40); White Blood Cell (WBC) Count 9.6 thou/uL (4.8-10.8)
[2021-05-23 06:28] LABS: Anion Gap 11 mmol/L (10-20); BUN (Urea Nitrogen) 20 mg/dL (9.8-20.1); Calc. Creatinine Clearance 164 mL/min (70-130); Calcium 8.4 mg/dL (7.8-10.44); Carbon Dioxide 26 mmol/L (23-31); Chloride 109 mmol/L (98-107); Glucose 164 mg/dL (80-115); Potassium 4.3 mmol/L (3.5-5.1); Sodium 142 mmol/L (136-145)
[2021-05-23] MEDS: Fluticasone Propionate Nasal Spray 16 gm Bottle NASAL SCH (09:28)
[2021-05-23] MEDS: Ezetimibe 10 MG TAB PO SCH (09:29)
[2021-05-23] MEDS: Losartan 25 MG TAB PO SCH (09:29)
[2021-05-23] MEDS: Allopurinol 100 MG TAB PO SCH (09:30)
[2021-05-23] MEDS: Gabapentin 300 MG CAP PO SCH ×3 (09:30→19:53)
[2021-05-23] MEDS: Aspirin 81 mg Enteric Coated Tablet PO SCH (09:30)
[2021-05-23] MEDS: Amlodipine 10 MG TAB PO SCH (09:31)
[2021-05-23] MEDS: Oxybutynin ER 5 MG TAB PO SCH (09:31)
[2021-05-23] MEDS: Enoxaparin Sodium 40 MG/0.4 ML SYRINGE SC SCH (09:31)
[2021-05-23] MEDS: HumaLOG 300 UNITS/3 ML VIAL SC PRN ×2 (12:47→17:34)
[2021-05-23] MEDS: hydrALAZINE 20 MG/ML VIAL SLOW IVP PRN (17:41)
[2021-05-23 19:07] LABS: Amphetamine Not Detected (NotDetected); Barbiturates Screen Not Detected (NotDetected); Benzodiazepine Screen Not Detected (NotDetected); Cocaine Metabolite Screen Not Detected (NotDetected); Methadone Not Detected (NotDetected); Methamphetamine Not Detected (NotDetected); Opiate Screen Not Detected (NotDetected); Oxycodone Screen Not Detected (NotDetected); Phencyclidine (PCP) Not Detected (NotDetected); THC/Cannabinoid Screen Not Detected (NotDetected); Tricyclic Screen Not Detected (NotDetected)
[2021-05-23] MEDS: Atorvastatin Calcium 40 MG TAB PO SCH (19:53)
[2021-05-24] MEDS: Amlodipine 10 MG TAB PO SCH (09:37)
[2021-05-24] MEDS: Allopurinol 100 MG TAB PO SCH (09:37)
[2021-05-24] MEDS: Aspirin 81 mg Enteric Coated Tablet PO SCH (09:37)
[2021-05-24] MEDS: Losartan 25 MG TAB PO SCH (09:37)
[2021-05-24] MEDS: Enoxaparin Sodium 40 MG/0.4 ML SYRINGE SC SCH (09:38)
[2021-05-24] MEDS: Fluticasone Propionate Nasal Spray 16 gm Bottle NASAL SCH (09:38)
[2021-05-24] MEDS: Gabapentin 300 MG CAP PO SCH ×3 (09:38→22:07)
[2021-05-24] MEDS: Ezetimibe 10 MG TAB PO SCH (09:38)
[2021-05-24] MEDS: Oxybutynin ER 5 MG TAB PO SCH (09:46)
[2021-05-24] MEDS: HumaLOG 300 UNITS/3 ML VIAL SC PRN ×2 (11:32→17:37)
[2021-05-24] MEDS: hydrALAZINE 20 MG/ML VIAL SLOW IVP PRN (11:33)
[2021-05-24] MEDS: NIFEdipine XL 60 MG TAB PO SCH (22:07)
[2021-05-24] MEDS: Atorvastatin Calcium 40 MG TAB PO SCH (22:08)
[2021-05-25] MEDS: HumaLOG 300 UNITS/3 ML VIAL SC PRN ×2 (06:21→12:10)
[2021-05-25] MEDS: Enoxaparin Sodium 40 MG/0.4 ML SYRINGE SC SCH (09:33)
[2021-05-25] MEDS: Oxybutynin ER 5 MG TAB PO SCH (09:33)
[2021-05-25] MEDS: Fluticasone Propionate Nasal Spray 16 gm Bottle NASAL SCH (09:33)
[2021-05-25] MEDS: Allopurinol 100 MG TAB PO SCH (09:35)
[2021-05-25] MEDS: Gabapentin 300 MG CAP PO SCH ×2 (09:35→17:05)
[2021-05-25] MEDS: Ezetimibe 10 MG TAB PO SCH (09:35)
[2021-05-25] MEDS: Losartan 25 MG TAB PO SCH (09:35)
[2021-05-25] MEDS: NIFEdipine XL 60 MG TAB PO SCH (09:36)
[2021-05-25] MEDS: Aspirin 81 mg Enteric Coated Tablet PO SCH (09:36)
[2021-05-25 15:46] VITALS: TEMP 98
[2021-05-25 16:36] VITALS: BP 168/88
== END 2021-05-25 18:35 | disposition home health service (06) | DRG 69 ==
LOC: ERS 16:15 → INTOOBSV 19:34 → 3SE 19:34 → OBSVTOIN 05-22 14:28 → 3SW 05-24 10:44 → NEURO 05-24 10:46
PROVIDERS: ADMIT Student in an Organized Health Care Education/Training Program; ATTEND Internal Medicine
DX: G45.9 Transient cerebral ischemic attack, unspecified (principal); G81.94 Hemiplegia, unspecified affecting left nondominant side; R45.851 Suicidal ideations; R47.01 Aphasia; Z68.42 Body mass index [BMI] 45.0-49.9, adult; M48.02 Spinal stenosis, cervical region; E11.9 Type 2 diabetes mellitus without complications; F41.9 Anxiety disorder, unspecified; F32.A Depression, unspecified; J44.9 Chronic obstructive pulmonary disease, unspecified; G89.29 Other chronic pain; M54.50 Low back pain, unspecified; M10.9 Gout, unspecified; E66.01 Morbid (severe) obesity due to excess calories; K21.9 Gastro-esophageal reflux disease without esophagitis; G47.33 Obstructive sleep apnea (adult) (pediatric); I11.0 Hypertensive heart disease with heart failure; I50.9 Heart failure, unspecified; E78.2 Mixed hyperlipidemia; Z20.822 Contact with and (suspected) exposure to COVID-19; R29.707 NIHSS score 7; Z86.73 Personal history of transient ischemic attack (TIA), and cerebral infarction without residual deficits; Z90.49 Acquired absence of other specified parts of digestive tract; Z90.710 Acquired absence of both cervix and uterus; Z88.1 Allergy status to other antibiotic agents; Z88.0 Allergy status to penicillin; Z88.2 Allergy status to sulfonamides; Z91.040 Latex allergy status; Z79.899 Other long term (current) drug therapy; Z79.4 Long term (current) use of insulin
CPT/HCPCS: 36415; 36416; 70450; 70496; 70498; 71045; 80048; 80053; 80061; 80306; 80307; 83735; 84484; 85025; 85610; 85730; 93005; 94760; 96372; G0378; J0360; J1650; J1815; Q9967; U0002